=== PATIENT | male | born 1970 | race Two or more races ===

== ENCOUNTER 2024-12-13 10:10 | Emergency (ER) | payer OTHER, SELFPAY ==
[2024-12-13 10:28] VITALS: BP 154/93; PULSE 92; RESP 18; TEMP 37.1; O2SAT 95; BMI 27.3
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
[2024-12-13 10:39] VITALS: PULSE 83
[2024-12-13 10:53] LABS: Lactate (Lactic Acid) 1.1 mMol/L (0.4-2.0)
[2024-12-13 10:56] LABS: Basophils # (Auto) 0.1 Thou/mm3 (0.0-0.2); Basophils % (Auto) 0 % (0-2.5); Eosinophils # (Auto) 0.1 Thou/mm3 (0.0-0.5); Eosinophils % (Auto) 1 % (0-10); Hematocrit 43.4 % (41.0-53.0); Hemoglobin 14.8 g/dL (13.5-16.0); Immature Granulocytes Auto 0.05 Thou/mm3 (0.00-0.00); Lymphocytes # (Auto) 1.3 Thou/mm3 (1.0-4.8); Lymphocytes % (Auto) 10 % (10-50); Mean Corpuscular HGB Conc 34.1 g/dl (31.0-37.0); Mean Corpuscular Hemoglobin 31.1 pg (25.0-35.0); Mean Corpuscular Volume 91 fL (80-100); Monocytes # (Auto) 0.8 Thou/mm3 (0.0-0.8); Monocytes % (Auto) 6 % (0-12); Neutrophils # (Auto) 11.2 Thou/mm3 (1.8-7.7); Neutrophils % (Auto) 83 % (37-80); Nucleated Red Blood Cell # 0.00 Thou/mm3 (0.00-0.00); Nucleated Red Blood Cell % 0 /100 WBC (0); Platelet Count 232 Thou/mm3 (140-440); RDW Standard Deviation 44.0 fL (35.1-43.9); Red Blood Count 4.76 Miln/mm3 (4.50-5.90); White Blood Count 13.6 Thou/mm3 (3.8-10.6)
[2024-12-13 11:10] LABS: INR 1.0 (0.9-1.3); Prothrombin Time 10.8 Seconds (9.0-12.2)
[2024-12-13] MEDS: SODIUM CHLORIDE 0.9% 1000 ML 1,000 ML 999 ML IV (11:19)
[2024-12-13] MEDS: MORPHINE SULF INJ 10 MG/ML VIAL 2 MG IVP ×2 (11:19→12:15)
[2024-12-13 11:23] LABS: Alanine Aminotransferase 34 U/L (10-49); Albumin, Serum 4.7 gm/dL (3.5-5.0); Albumin/Globulin Ratio 1.7 (1.2-2.2); Alcohol, Blood Medical < 10.0 mg/dL (0-10.0); Alkaline Phosphatase 68 U/L (46-116); Anion Gap 11 (7-16); Aspartate Amino Transferase 38 U/L (0-34); BUN/Creatinine Ratio 14 Ratio (12-20); Bilirubin,Total 0.6 mg/dL (0.3-1.2); Blood Urea Nitrogen 11 mg/dL (9-23); Calcium 9.5 mg/dL (8.3-10.6); Calcium (Corrected) 9.5 mg/dL (8.5-10.1); Carbon Dioxide 25.1 mMol/L (20.0-31.0); Chloride 105 mMol/L (98-107); Creatinine (Component) 0.8 mg/dL (0.6-1.3); Estimated Creatinine Clearance 101.8 mL/min (>60); Globulin 2.8 gm/dL (2.3-3.5); Glucose 99 mg/dL (74-106); Lipase 40 U/L (12-53); Osmolality,Calculated 280 (275-295); Potassium 3.8 mMol/L (3.4-5.1); Sodium 141 mMol/L (136-145); Total Protein 7.5 gm/dL (5.7-8.2); eGFR > 60 See Note
[2024-12-13 11:34] VITALS: BP 148/87; PULSE 84; RESP 18; TEMP 36.4; O2SAT 94
[2024-12-13 12:11] LABS: Collection Type, Urine Clean Catch; Squamous Epithelial Cell,Urine 0 /hpf (0-5); WBC,Urine 0 /hpf (0-5)
[2024-12-13 12:16] LABS: Bilirubin,Urine Negative (Negative); Blood,Urine Negative (Negative); Clarity,Urine Clear (Clear/Hazy); Color,Urine Lt-Yellow (Lt Yel-Yel); Culture Indicated,Urine Not Indicated; Glucose, Urine Negative (Negative); Ketones,Urine Negative (Negative); Leukocyte Esterase,Urine Negative (Negative); Nitrite,Urine Negative (Negative); PH,Urine 6.5 (5.0-7.0); Protein,Urine Negative (Neg - Trace); RBC,Urine 1 /hpf (0-3); Specific Gravity,Urine 1.031 (1.001-1.035); Urobilinogen,Urine Negative mg/dL (0.0-1.0)
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
[2024-12-13 12:26] LABS: Amphetamine/Methamp Scrn,U Negative (Negative); Barbiturate Screen,Urine Negative (Negative); Benzodiazepines Screen,Urine Negative (Negative); Benzoylecgonine Screen, Ur Negative (Negative); Fentanyl Screen,Urine Negative (Negative); Opiate Screen,Urine Positive (Negative); THC Screen,Urine Negative (Negative)
--- NOTE | 2024-12-13 12:27 | PC.NURSE ---
DR. MARQUEZ REQUESTED PATIENT BE EVALUATED FOR CHANGE IN VOICE OR INCREASE IN SOB. PATIENT DENIES AND STATES PAIN IS 2/10 ON PAIN SCALE FOLLOWING MEDICATION. DR. MARQUEZ MADE AWARE OF ASSESSMENT FINDINGS.
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
[2024-12-13] MEDS: MORPHINE SULF INJ 10 MG/ML VIAL 4 MG IVP (13:03)
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
--- NOTE | 2024-12-13 15:35 | PC.NURSE ---
CALLED AND SPOKE TO REJI AT [facility] TO WHOM I GAVE REPORT TOO.
[2024-12-13 15:40] VITALS: BP 142/94; PULSE 75; RESP 17; TEMP 36.8; O2SAT 99
== END 2024-12-13 16:11 | disposition short-term general hospital (02) ==
PROVIDERS: Emergency Provider Emergency Medicine
DX: S09.90XA Unspecified injury of head, initial encounter (principal); S32.008A Other fracture of unspecified lumbar vertebra, initial encounter for closed fracture; S12.8XXA Fracture of other parts of neck, initial encounter; V86.55XA Driver of 3- or 4- wheeled all-terrain vehicle (ATV) injured in nontraffic accident, initial encounter; Z02.6 Encounter for examination for insurance purposes
CPT/HCPCS: 36415; 70450; 70491; 71260; 72125; 72131; 74177; 80053; 80307; 80320; 81001; 83605; 83690; 85025; 85610; 96361; 96372; 96374; 96376; 99284; A4649; J2270; J7030; Q9967; G0480